=== PATIENT | male | born 1935 ===

== ENCOUNTER 2020-01-15 06:00 | Outpatient (CLI) | payer OTHER ==
[2020-01-15] MEDS ORDERED: JANUMET PO (09:31)
== END 2020-01-15 06:05 | disposition home or self-care (01) ==
LOC: RAD 06:00 → LAB 06:00 → ADM 07:45 → CIR.AMB 01-20 07:00 → ADM 01-20 07:45 → EDSTATUS 01-20 07:45 → LAB 02-19 12:55
PROVIDERS: ATTEND Specialist
DX: D75.81 Myelofibrosis (principal); Z11.59 Encounter for screening for other viral diseases; D64.89 Other specified anemias; Z01.810 Encounter for preprocedural cardiovascular examination; Z01.812 Encounter for preprocedural laboratory examination; Z01.811 Encounter for preprocedural respiratory examination